=== PATIENT | male | born 1990 | race Caucasian/White ===

== ENCOUNTER 2017-05-07 17:36 | Emergency (ER) | payer MEDICAID | END 2017-05-07 18:30 | disposition home or self-care (01) | LOC: ER1 17:36 | DX: H10.32 Unspecified acute conjunctivitis, left eye (principal); F17.210 Nicotine dependence, cigarettes, uncomplicated | CPT/HCPCS: 99283 ==

== ENCOUNTER 2021-08-21 10:41 | Emergency (ER) | payer OTHER ==
[~2021-08-21 10:41] MED LIST: AUGMENTIN 875-1 EACH PO; EXPECTORANT200 MG PO; IBUPROFEN600 MG PO; IBUPROFEN800 MG PO
[2021-08-21 12:43] LABS: RED BLOOD COUNT 4.69 M/UL (4.20-5.50); WHITE BLOOD COUNT 8.1 K/UL (4.5-11.0)
[2021-08-21 12:57] LABS: BORDETELLA PARAPERTUSSIS Not Detected (Not Detectd); BORDETELLA PERTUSSIS Not Detected (Not Detectd); CHLAMYDIA PNEUMONIAE Not Detected (Not Detectd); CORONAVIRUS HKU1 Not Detected (Not Detectd); CORONAVIRUS NL63 Not Detected (Not Detectd); CORONOAVIRUS 229E Not Detected (Not Detectd); HUMAN METAPNEUMOVIRUS Not Detected (Not Detectd); HUMAN RHINOVIRUS/ENTEROVIRUS Not Detected (Not Detectd); INFLUENZA A Not Detected (Not Detectd); INFLUENZA B Not Detected (Not Detectd); MYCOPLASMA PNEUMONIAE Not Detected (Not Detectd); PARAINFLUENZA VIRUS 1 Not Detected (Not Detectd); PARAINFLUENZA VIRUS 2 Not Detected (Not Detectd); PARAINFLUENZA VIRUS 3 Not Detected (Not Detectd); PARAINFLUENZA VIRUS 4 Not Detected (Not Detectd); RESPIRATORY SYNCYTIAL VIRUS Not Detected (Not Detectd)
[2021-08-21 13:05] LABS: BUN/CREATININE RATIO 8 (0-10)
[2021-08-21 15:37] LABS: CORONAVIRUS OC43 DETECTED (Not Detectd); SARS-CoV-2 NOT DETECTED (Not Detectd)
[2021-08-21] MEDS ORDERED: FLONASE 0.05% N16 GM (16:16)
[2021-08-21] MEDS ORDERED: DELSYM30 MG/5 ML PO (16:16)
[2021-08-21] MEDS ORDERED: PROVENTIL HFA6.7 GM INH (16:16)
[2021-08-21] MEDS ORDERED: MEDROL DOSEPAK 24 MG PO (16:16)
== END 2021-08-21 16:27 | disposition home or self-care (01) ==
LOC: ER1 10:41
PROVIDERS: Physician Assistant Medical
DX: R05.9 Cough, unspecified (principal); F17.210 Nicotine dependence, cigarettes, uncomplicated; Z20.822 Contact with and (suspected) exposure to COVID-19
CPT/HCPCS: 71045; 80053; 82550; 82553; 83605; 83874; 84484; 85025; 87040; 87081; 87633; 87880; 93005; 96374; 99284; J1100

== ENCOUNTER → 2022-04-15 | Day surgery (SDC) | payer OTHER ==
[~2022-04-15] MED LIST changes: +DELSYM30 MG/5 ML PO; +FLONASE 0.05% N16 GM; +MEDROL DOSEPAK 24 MG PO; +PROVENTIL HFA6.7 GM INH; +XYZAL5 MG PO
== END | disposition home or self-care (01) ==
LOC: OR 08:34
DX: K31.9 Disease of stomach and duodenum, unspecified (principal); F17.210 Nicotine dependence, cigarettes, uncomplicated; R63.6 Underweight; Z68.1 Body mass index [BMI] 19.9 or less, adult
CPT/HCPCS: J2704; J7040